=== PATIENT | male | born 1975 | race Caucasian/White ===

== ENCOUNTER → 2018-11-05 15:36 | Outpatient (CLI) | payer OTHER | END | disposition home or self-care (01) | LOC: D.RAD 15:36 | DX: R06.02 Shortness of breath (principal) ==

== ENCOUNTER → 2020-01-05 17:55 | Outpatient (CLI) | payer OTHER | END | disposition home or self-care (01) | LOC: D.LABREF 17:55 | PROVIDERS: ATTEND Urology | DX: R82.90 Unspecified abnormal findings in urine (principal) ==